=== PATIENT | male | born 1970 | race Caucasian/White ===

== ENCOUNTER 2017-02-26 19:57 | Emergency (ER) | payer SELFPAY ==
[2017-02-26 21:11] VITALS: BP 150/68
--- NOTE | 2017-02-26 23:28 | Emergency Department Report ---
ED Eye Problem HPI - General Chief complaint: Eye Problems Stated complaint: PIECE OF NAIL IN RIGHT EYE Time Seen by Provider: 02/26/17 23:27 Source: patient Mode of arrival: Ambulatory Limitations: No Limitations - History of Present Illness Initial comments: 46M PMh none p/w c/o a piece of metal hitting his right eye while at work today. Patient states he was using a nail gun and a chip of metal hit his right eye. Patient states that while he was waiting this piece of metal fell out of his right eye. Patient states that his vision is not blurry but does state that he has right eye irritation. Patient is unaware of his tetanus vaccine status. Patient states immediately after he had foreign body sensation in his eye irrigated his eye MD chief complaint: eye pain, eye redness, eye injury -: This afternoon Onset Description: sudden Location: right eye Place: work If Injury: none Eye Symptoms: foreign body sensation, itching Severity: moderate Severity scale (0 -10): 6 If Pain, Quality: burning, aching Consistency: constant Associated Symptoms: none - Related Data Previous Rx's Medication Instructions Recorded Last Taken Type Glycerin/Propylene Glycol 1 drop OP Q4H PRN #1 drops 02/27/17 Unknown Rx [Artificial Tears Drops] Ibuprofen [Motrin] 800 mg PO Q8HR PRN #30 tablet 02/27/17 Unknown Rx Tobramycin 0.3% [Tobrex] 1 drop OD Q4H #1 bottle 02/27/17 Unknown Rx Allergies Allergy/AdvReac Type Severity Reaction Status Date / Time No Known Allergies Allergy Unverified 02/26/17 21:13 ED Review of Systems ROS: Stated complaint: PIECE OF NAIL IN RIGHT EYE Other details as noted in HPI Constitutional: denies: chills, fever Eyes: as per HPI. denies: eye pain, eye discharge, vision change ENT: denies: ear pain, throat pain Respiratory: denies: cough, shortness of breath, wheezing Cardiovascular: denies: chest pain, palpitations Endocrine: no symptoms reported Gastrointestinal: denies: abdominal pain, nausea, diarrhea Genitourinary: denies: urgency, dysuria Musculoskeletal: denies: back pain, joint swelling, arthralgia Skin: denies: rash, lesions Neurological: denies: headache, weakness, paresthesias Psychiatric: denies: anxiety, depression Hematological/Lymphatic: denies: easy bleeding, easy bruising ED Past Medical Hx - Past Medical History Previous Medical History?: No - Surgical History Past Surgical History?: No - Social History Smoking Status: Current Every Day Smoker Substance Use Type: Alcohol - Medications Home Medications: Home Medications Medication Instructions Recorded Confirmed Last Taken Type Glycerin/Propylene Glycol 1 drop OP Q4H PRN #1 drops 02/27/17 Unknown Rx [Artificial Tears Drops] Ibuprofen [Motrin] 800 mg PO Q8HR PRN #30 tablet 02/27/17 Unknown Rx Tobramycin 0.3% [Tobrex] 1 drop OD Q4H #1 bottle 02/27/17 Unknown Rx ED Physical Exam - General Limitations: No Limitations General appearance: alert, in no apparent distress - Head Head exam: Present: atraumatic, normocephalic - Eye Eye exam: Present: PERRL, EOMI - Expanded Eye Exam Expanded Pupils: Regular, Round: Bilateral Sclera/Conjunctival: Injection: Right (uptake on fluorescein representing a corneal abrasion to the left of iris) Anterior chamber: Normal Inspection: Bilateral Visual acuity (R) = 20/: 20 Visual acuity (L) = 20/: 20 With correction: No - ENT ENT exam: Present: mucous membranes moist - Neck Neck exam: Present: normal inspection - Respiratory Respiratory exam: Present: normal lung sounds bilaterally. Absent: respiratory distress - Cardiovascular Cardiovascular Exam: Present: regular rate, normal rhythm. Absent: systolic murmur, diastolic murmur, rubs, gallop - GI/Abdominal GI/Abdominal exam: Present: soft, normal bowel sounds - Rectal Rectal exam: Present: deferred - Extremities Exam Extremities exam: Present: normal inspection - Back Exam Back exam: Present: normal inspection - Neurological Exam Neurological exam: Present: alert, oriented X3 - Psychiatric Psychiatric exam: Present: normal affect, normal mood - Skin Skin exam: Present: warm, dry, intact, normal color. Absent: rash ED Course Vital Signs 02/26/17 21:08 Temperature 98.2 F Pulse Rate 63 Respiratory 18 Rate Blood Pressure 150/68 O2 Sat by Pulse 100 Oximetry ED Medical Decision Making - Medical Decision Making A/P: Corneal abrasion with metal object right eye 1-piece of metal object fell out of patient's eye, placed in a specimen container 2-on fluorescein stain there is no visible foreign body embedded IL surface no Aury sign, extraocular movements are intact, pupils reactive to light. Visible corneal abrasion not directly overlying the pupil, on the cornea 3-tetanus updated today. Motrin when necessary, tobramycin eyedrops. Overall visual acuity is intact in both eyes, 20/20 4- I emphasized the importance of follow-up with an manager etl to the patient. Patient stated he understood and will call to make a follow-up appointment within the next few days 5- CT of the orbit reflects no metal foreign body in right eye Critical care attestation.: If time is entered above; I have spent that time in minutes in the direct care of this critically ill patient, excluding procedure time. ED Disposition Clinical Impression: Corneal abrasion, right Qualifiers: Encounter type: initial encounter Qualified Code(s): S05.01XA - Injury of conjunctiva and corneal abrasion without foreign body, right eye, initial encounter Disposition: TO HOME OR SELFCARE Is pt being admited?: No Does the pt Need Aspirin: No Condition: Stable Instructions: Diphtheria/Tetanus Vaccine (Injection), Corneal Abrasion (ED) Prescriptions: Glycerin/Propylene Glycol [Artificial Tears Drops] 1 drop OP Q4H PRN #1 drops PRN Reason: Itching Ibuprofen [Motrin] 800 mg PO Q8HR PRN #30 tablet PRN Reason: Pain Tobramycin 0.3% [Tobrex] 1 drop OD Q4H #1 bottle Referrals: ARCELIA ELIZABETH MD [Staff Physician] - 3-5 Days Forms: Accompanied Note, Work/School Release Form(ED) Time of Disposition: 01:34 Print Language: GEORGIAN
[2017-02-26] MEDS ORDERED: MOTRIN PO ONE (23:39)
[2017-02-26] MEDS ORDERED: BOOSTRIX IM ONE (23:40)
--- NOTE | 2017-02-27 01:27 | Cat Scan Report ---
FINAL REPORT PROCEDURE: CT ORBIT/EAR/FOSSA WO CON TECHNIQUE: Computerized axial tomography of the orbits was performed without contrast material. HISTORY: pt had piece of metal stuck in right eye, extracte COMPARISON: No prior studies are available for comparison. FINDINGS: Bones and sinuses: Normal. Globes: Normal. Extraocular muscles: Normal. Optic nerves: Normal. Lacrimal glands: Normal. IMPRESSION: Normal Examination.
== END 2017-02-27 01:43 | disposition home or self-care (01) ==
LOC: ED 19:57
DX: S05.01XA Injury of conjunctiva and corneal abrasion without foreign body, right eye, initial encounter (principal); F17.200 Nicotine dependence, unspecified, uncomplicated; W22.8XXA Striking against or struck by other objects, initial encounter; Y93.89 Activity, other specified; Y99.8 Other external cause status; Y92.89 Other specified places as the place of occurrence of the external cause
CPT/HCPCS: 70480; 90471; 90715